=== PATIENT | male | born 1985 ===

== ENCOUNTER 2017-05-23 13:09 | Emergency (ER) | payer BC, MEDICAID, OTHER ==
[2017-05-23 13:29] VITALS: BP 124/80; PULSE 66; RESP 18; TEMP 98.2; O2SAT 98
[2017-05-23 14:06] LABS: BASO % 0.8 % (0.0-2.0); EOS # 0.1 K/uL (0.0-0.7); EOS % 2.9 % (0.0-4.0); HEMATOCRIT 40.5 % (35.0-51.0); LYMPH # 1.7 K/uL (1.0-4.3); LYMPH % 36.3 % (20.0-40.0); MEAN CELL VOLUME 87.4 fl (80.0-94.0); MEAN CORPUSCULAR HEMOGLOBIN 30.1 pg (27.0-31.0); MEAN CORPUSCULAR HGB CONC 34.5 g/dL (33.0-37.0); MEAN PLATELET VOLUME 9.7 fl (7.2-11.7); MONO # 0.4 K/uL (0.0-0.8); MONO % 8.1 % (0.0-10.0); NEUT # 2.4 K/uL (1.8-7.0); NEUT % 51.9 % (50.0-75.0); NRBC % 0.1 % (0.0-0.0); RED CELL DISTRIBUTION WIDTH 13.7 % (11.5-14.5); WHITE BLOOD COUNT 4.6 K/uL (4.8-10.8)
[2017-05-23 14:20] LABS: BLOOD UREA NITROGEN 15 mg/dl (9-20); CALCIUM 9.2 mg/dL (8.4-10.2); CARBON DIOXIDE 25 mmol/L (22-30); CHLORIDE 106 mmol/L (98-107); GFR AFRICAN-AMERICAN > 60; GLUCOSE,RANDOM 89 mg/dL (75-110); POTASSIUM 4.1 MMOL/L (3.6-5.0); SODIUM 141 mmol/l (132-148)
[2017-05-23 14:46] LABS: RBC URINE 37 /hpf (0-3); URINE BACTERIA RARE (<OCC); URINE BILIRUBIN NEGATIVE (NEGATIVE); URINE BLOOD MODERATE (NEGATIVE); URINE COLOR AMBER (YELLOW); URINE GLUCOSE (UA) NEG (Normal); URINE KETONE NEGATIVE (NEGATIVE); URINE LEUKOCYTE ESTERASE SMALL Leu/uL (Negative); URINE PROTEIN 100 mg/dL (NEGATIVE); WBC URINE 90 /hpf (0-5)
[2017-05-23] MEDS ORDERED: cefTRIAXone (Rocephin) 250 mg Inj IM ONE (15:08)
[2017-05-23] MEDS ORDERED: Sterile Water 10 ML IV ONE (15:12)
[2017-05-23] MEDS ORDERED: cefTRIAXone (Rocephin) 250 mg Inj ONE (15:13)
--- NOTE | 2017-05-23 15:20 | ED PDOC ---
HPI: Male Pain Time Seen by Provider: 05/23/17 13:42 Chief Complaint (Nursing): Male Genitourinary Chief Complaint (Provider): Dysuria History Per: Patient History/Exam Limitations: no limitations Onset/Duration Of Symptoms: Days (x4) Current Symptoms Are (Timing): Still Present Additional Complaint(s): Christian Nelson is a 31 year old male with previous surgical history of hernia repair and appendectomy, who presents to the emergency department with a complaint of dysuria associated with frequency, urgency, dribbling, pressure in bladder, and one episode of slightly bloody urine. Denied any fever, chills, back pain, penile discharge or STDs. Patient reported empirically starting antibiotics given to him by his mother. PMD: Yu Hope MD Past Medical History Reviewed: Historical Data, Nursing Documentation, Vital Signs Vital Signs: Last Vital Signs Temp 98.2 F 05/23/17 13:26 Pulse 66 05/23/17 13:26 Resp 18 05/23/17 13:26 BP 124/80 05/23/17 13:26 Pulse Ox 98 05/23/17 13:26 - Surgical History Surgical History: Appendectomy, Hernia Repair - Family History Family History: States: [place], Diabetes, Hypertension - Social History Current smoker - smoking cessation education provided: No Alcohol: Occasional Drugs: Denies - Home Medications Home Medications: Ambulatory Orders Medication Instructions Recorded Acetaminophen [Tylenol] 325 mg PO PRN PRN 09/26/15 Acetaminophen with Codeine 2 tab PO Q4H PRN #22 tab 09/26/15 [Tylenol with Codeine No. 3 300 mg-30 mg] Ciprofloxacin [Cipro] 500 mg PO BID #28 tab 05/23/17 Doxycycline Monohydrate 100 mg PO BID #28 capsule 05/23/17 - Allergies Allergies/Adverse Reactions: Allergies Allergy/AdvReac Type Severity Reaction Status Date / Time No Known Allergies Allergy Verified 09/26/15 17:52 Review of Systems ROS Statement: Except As Marked, All Systems Reviewed And Found Negative Constitutional: Negative for: Fever, Chills Genitourinary Male: Positive for: Dysuria, Frequency (urgency and dribbling urine), Hematuria (one episode). Negative for: Penile Discharge Musculoskeletal: Negative for: Back Pain Physical Exam - Reviewed Nursing Documentation Reviewed: Yes Vital Signs Reviewed: Yes - Physical Exam Appears: Positive for: Well, Non-toxic, No Acute Distress Head Exam: Positive for: ATRAUMATIC, NORMAL INSPECTION, NORMOCEPHALIC Skin: Positive for: Normal Color, Warm, DRY Cardiovascular/Chest: Positive for: Regular Rate, Rhythm Respiratory: Positive for: CNT, Normal Breath Sounds Male Genital Exam: Positive for: normal genitalia, normal prostate. Negative for: urethral discharge (from penile meatus) Back: Positive for: Normal Inspection. Negative for: L CVA Tenderness, R CVA Tenderness Neurologic/Psych: Positive for: Alert, claims account manager II-XII, Oriented - Laboratory Results Result Diagrams: 05/23/17 13:55 05/23/17 13:55 - ECG O2 Sat by Pulse Oximetry: 98 (RA) Pulse Ox Interpretation: Normal Medical Decision Making Medical Decision Making: Initial Impression: Dysuria Initial Plan: * Chlamydia/GC * Rocephin 250mg IM * Genital culture * Urine culture * Re-evaluation Time: 15:45 Upon provider reevaluation, patient is medically stable and requires no further treatment in the ED at this time. Patient will be discharged home with Rx for Cipro 500mg and Doxycycline Monohydrate 100mg. Counseling was provided and all questions were answered regarding diagnosis and need for follow up with PCP. There is agreement to discharge plan. Return if symptoms persist or worsen. Clinical Impression: UTI Scribe Attestation: Documented by Wanda Sandoval, acting as a scribe for Aubrey Patel III, MD. Provider Scribe Attestation: All medical record entries made by the Scribe were at my direction and personally dictated by me. I have reviewed the chart and agree that the record accurately reflects my personal performance of the history, physical exam, medical decision making, and the department course for this patient. I have also personally directed, reviewed, and agree with the discharge instructions and disposition. Disposition - Clinical Impression Clinical Impression: UTI (urinary tract infection) - Patient ED Disposition Is Patient to be Admitted: No Doctor Will See Patient In The: Office Counseled Patient/Family Regarding: Studies Performed, Diagnosis, Need For Followup, Rx Given - Disposition Referrals: Dallin Lynn MD [Medical Doctor] - Disposition: Routine/Home Disposition Time: 15:45 Condition: STABLE Additional Instructions: Drink plenty of fluids, avoid alcohol, and take antibiotics as directed. Avoid exercise for next 3 weeks as cipro has been known to cause tendon injury if taken while exercising. See urology for followup and further testing. STD testing panel to return in 3 days. Followup with [facility] for results. Prescriptions: Ciprofloxacin [Cipro] 500 mg PO BID #28 tab Doxycycline Monohydrate 100 mg PO BID #28 capsule Instructions: Prostatitis (ED), Urinary Tract Infection in Men (ED), Acute Hematuria (ED) Forms: [employer] (Angolan) - POA Present On Arrival: None
== END 2017-05-23 16:13 | disposition home or self-care (01) ==
LOC: H.ER 13:09
DX: N39.0 Urinary tract infection, site not specified (principal)

== ENCOUNTER 2017-05-27 13:22 | Emergency (ER) | payer MEDICAID, OTHER ==
[2017-05-27 13:32] VITALS: BP 111/62; PULSE 88; RESP 20; TEMP 98.7; O2SAT 98
--- NOTE | 2017-05-27 13:43 | ED PDOC ---
Upper Extremity Pain/Injury Time Seen by Provider: 05/27/17 13:28 Chief Complaint (Nursing): Upper Extremity Problem/Injury Chief Complaint (Provider): Right finger pain History Per: Patient History/Exam Limitations: no limitations Onset/Duration Of Symptoms: Days (x 5 days ago) Current Symptoms Are (Timing): Still Present Additional Complaint(s): Christian Nelson is a 31 y/o male who presents to the emergency department complaining of right finger pain after sustaining an injury 5 days ago. Patient describes slipping and falling, and placed weight on the right index finger. Denies numbness and tingling. PMD: Unknown Past Medical History Reviewed: Historical Data, Nursing Documentation, Vital Signs Vital Signs: Last Vital Signs Temp 98.7 F 05/27/17 13:28 Pulse 88 05/27/17 13:28 Resp 20 05/27/17 13:28 BP 111/62 05/27/17 13:28 Pulse Ox 98 05/27/17 13:28 - Medical History PMH: No Chronic Diseases - Surgical History Surgical History: Appendectomy, Hernia Repair - Family History Family History: States: [place], Diabetes, Hypertension - Social History Current smoker - smoking cessation education provided: No Alcohol: Occasional Drugs: Denies - Home Medications Home Medications: Ambulatory Orders Medication Instructions Recorded Acetaminophen [Tylenol] 325 mg PO PRN PRN 09/26/15 Acetaminophen with Codeine 2 tab PO Q4H PRN #22 tab 09/26/15 [Tylenol with Codeine No. 3 300 mg-30 mg] Ciprofloxacin [Cipro] 500 mg PO BID #28 tab 05/23/17 Doxycycline Monohydrate 100 mg PO BID #28 capsule 05/23/17 - Allergies Allergies/Adverse Reactions: Allergies Allergy/AdvReac Type Severity Reaction Status Date / Time No Known Allergies Allergy Verified 05/27/17 13:28 Review of Systems ROS Statement: Except As Marked, All Systems Reviewed And Found Negative Musculoskeletal: Positive for: Other (Right index finger pain and swelling) Neurological: Negative for: Numbness, Other (Tingling) Physical Exam - Reviewed Nursing Documentation Reviewed: Yes Vital Signs Reviewed: Yes - Physical Exam Appears: Positive for: Non-toxic, No Acute Distress Head Exam: Positive for: ATRAUMATIC, NORMAL INSPECTION, NORMOCEPHALIC Skin: Positive for: Normal Color, Warm, Dry Eye Exam: Positive for: EOMI, Normal appearance, PERRL ENT: Positive for: Normal ENT Inspection Neck: Positive for: Normal, Painless ROM, Supple Cardiovascular/Chest: Positive for: Regular Rate, Rhythm. Negative for: Murmur Respiratory: Positive for: Normal Breath Sounds. Negative for: Accessory Muscle Use, Respiratory Distress Gastrointestinal/Abdominal: Positive for: Normal Exam, Soft. Negative for: Tenderness Back: Positive for: Normal Inspection. Negative for: Vertebral Tenderness Extremity: Positive for: Tenderness (To the right 2nd digit), Swelling, Other ( Unable to flex finger). Negative for: Normal ROM Neurologic/Psych: Positive for: Alert, Oriented - ECG O2 Sat by Pulse Oximetry: 98 (RA) Pulse Ox Interpretation: Normal Medical Decision Making Medical Decision Making: Time: 13:34 Initial Impression: Sprain Initial Plan: --Pending X-Ray Right Hand xray: negative for fractures. Scribe Attestation: Documented by Luz Elena Mills, acting as a scribe for Shelly Knowles PA-C. Provider Scribe Attestation: All medical record entries made by the Scribe were at my direction and personally dictated by me. I have reviewed the chart and agree that the record accurately reflects my personal performance of the history, physical exam, medical decision making, and the department course for this patient. I have also personally directed, reviewed, and agree with the discharge instructions and disposition. Disposition - Clinical Impression Clinical Impression: Hand injury - Patient ED Disposition Is Patient to be Admitted: No Counseled Patient/Family Regarding: Studies Performed, Diagnosis, Need For Followup - Disposition Disposition: Routine/Home Disposition Time: 14:05 Condition: STABLE Instructions: Grisel Maurice (ED)
--- NOTE | 2017-05-27 14:01 | RAD ---
PROCEDURE: Right Hand Radiographs. HISTORY: 2nd digit pain COMPARISON: None available. FINDINGS: BONES: No acute displaced fracture. JOINTS: No dislocation. SOFT TISSUES: Soft tissue swelling. No evidence of radiopaque foreign body. OTHER FINDINGS: None. IMPRESSION: Soft tissue swelling. No acute displaced fracture, dislocation, or significant joint effusion identified. If symptoms persist, or if there is continued clinical concern, x-ray follow-up in 7-10 days should be considered.
== END 2017-05-27 14:24 | disposition home or self-care (01) ==
LOC: H.ER 13:22
DX: S69.91XA Unspecified injury of right wrist, hand and finger(s), initial encounter (principal); W19.XXXA Unspecified fall, initial encounter; Y92.89 Other specified places as the place of occurrence of the external cause